=== PATIENT | female | born 1990 | race Two or more races ===

== ENCOUNTER 2018-06-13 20:22 | Emergency (ER) | payer OTHER ==
[~2018-06-13] VITALS: Ht 170.2 cm; Wt 95.3 kg
[2018-06-13 20:55] VITALS: BP 148/77
--- NOTE | 2018-06-13 21:00 | NUR ---
BBSELF FROM HOME C/C OF FEELING DIZZINESS X BEFORE TUESDAY W/ PRESSURE HEADACHE X TODAY, NAUSEA NO VOMITTING. PT IS AAOX4. NO S/S OF ACUTE DISTRESS NOTED. RR EVEN AND UNLABORED. SKIN WAMR AND DRY. PT PLACED ON MONITOR AND POX. PT SAFETY AND COMFORT MEASURES IN PLACE.
== END 2018-06-13 23:16 | disposition home or self-care (01) ==
LOC: ER 20:28
DX: F41.9 Anxiety disorder, unspecified (principal); Z98.890 Other specified postprocedural states
CPT/HCPCS: 99283; A4606; Z7610

== ENCOUNTER 2019-04-29 12:56 | Emergency (ER) | payer OTHER ==
[~2019-04-29] VITALS: Ht 170.2 cm; Wt 81.6 kg
[2019-04-29 13:27] VITALS: BP 141/102
== END 2019-04-29 14:09 | disposition home or self-care (01) ==
LOC: ER 12:57
DX: K08.89 Other specified disorders of teeth and supporting structures (principal)

== ENCOUNTER 2020-04-13 14:00 | Emergency (ER) | payer OTHER ==
[~2020-04-13] VITALS: Ht 170.2 cm; Wt 90.7 kg
[2020-04-13 14:06] VITALS: BP 124/76
[2020-04-13] MEDS ORDERED: diphenhydrAMINE HCL 50 MG CAPSULE ONE (15:03)
[2020-04-13] MEDS ORDERED: FAMOTIDINE (20 MG) 20 MG TABLET ONE (15:03)
[2020-04-13] MEDS: FAMOTIDINE (20 MG) 20 MG TABLET PO ONE (15:05)
[2020-04-13] MEDS: diphenhydrAMINE HCL 50 MG CAPSULE PO ONE (15:06)
[2020-04-13 15:30] LABS: BILIRUBIN,URINE NEGATIVE (NEGATIVE); BLOOD, URINE SMALL Ery/uL (NEGATIVE); COLOR,URINE YELLOW (YELLOW); LEUKOCYTE ESTERASE ,URINE LARGE (NEGATIVE); NITRITE, URINE NEGATIVE (NEGATIVE); PROTEIN,URINE NEGATIVE (NEGATIVE); UGLUCOSE NEGATIVE (NEGATIVE); UROBILINOGEN,URINE 0.2 EU/dL (0.2)
[2020-04-13 15:59] LABS: BACTERIA,URINE 3+ /HPF (None Seen); WBC,URINE 21-50 /HPF (0-3)
--- NOTE | 2020-04-13 16:12 | NUR ---
Patient discharged to home in stable condition. Written and verbal after care instructions given. Patient verbalizes understanding of instruction.
== END 2020-04-13 16:13 | disposition home or self-care (01) ==
LOC: ER 14:03
DX: N39.0 Urinary tract infection, site not specified (principal); T37.0X5A Adverse effect of sulfonamides, initial encounter; Y92.89 Other specified places as the place of occurrence of the external cause
CPT/HCPCS: 81001; 82962; 87086; 99283; Q0163; 81000-TC